=== PATIENT | male | born 1990 | race Caucasian/White ===

== ENCOUNTER 2020-09-23 13:25 | Emergency (ER) | payer OTHER, SELFPAY ==
--- NOTE | 2020-09-23 13:29 | XRR_ITS ---
PROCEDURE INFORMATION: Exam: XR Left Hand Exam date and time: 09/23/2020 1:29 PM Age: 29 years old Clinical indication: Injury or trauma; Other: Sliced with knife; Laceration; Hand; Left; Injury date: 09/23/2020; Injury details: 2nd digit tip of finger, sliced with a knife TECHNIQUE: Imaging protocol: XR Left hand. Views: 3 or more views. COMPARISON: No relevant prior studies available. FINDINGS: Bones/joints: Negative for acute bony abnormality. Soft tissues: There is evidence of a laceration involving the distal aspect of the index finger. Soft tissue effusion is seen in the distal index finger. XR/XR hand LT min 3V* [id number] IMPRESSION: 1. No acute bone abnormality. 2. Soft tissue laceration and edema distal index finger
[2020-09-23 13:39] VITALS: BP 159/92; PULSE 105; RESP 18; TEMP 36.2; O2SAT 97; BMI 35.2
[2020-09-23] MEDS: lidocaine 1% INJ 20 mL INJECTION (14:04)
[2020-09-23 14:48] VITALS: PULSE 92; RESP 18; O2SAT 96
--- NOTE | 2020-09-23 15:18 | ED_ITS ---
HPI - Wound/Laceration General: Chief Complaint: Wound/Laceration Stated Complaint: L FINGER INJURY Time Seen by Provider: 09/23/20 13:34 Source: patient Mode of arrival: ambulatory Limitations: no limitations History of Present Illness: HPI narrative: 29 yo male patient presents to ER with Laceration to left index finger. Pt states he cut while cleaning a deer. Pt states his Tetanus is UTD. pt states he can move and bend his finger without difficulty. Bleeding is controlled. pt denies numbness or tingling Associated symptoms: Denies chills or fever(s) Review of Systems Const: Denies: fever(s) or chills Card: Denies: chest pain Resp: Denies: dyspnea GI: Denies: abdominal pain : Denies: flank pain Musc: Reports: extremity pain; Denies: neck pain or back pain Neuro: Denies: headache(s) or numbness in extremities Psych: Denies: anxiety or homicidal ideation Physical Exam Const: COMMON NORMALS: no acute distress, patient oriented x3 and no limitations Resp: COMMON NORMALS: normal respiratory effort Cardio: COMMON NORMALS: regular rate RATE: regular rate Extremity: COMMON NORMALS: full ROM and capillary refill normal NARRATIVE EXTREMITY EXAM: 2 cm laceration to the distal aspect of left 2nd digit pt is NVI and has full ROM Neuro: COMMON NORMALS: patient oriented x3, CN's II-XII intact bilaterally and moves all extremities Psych: COMMON NORMALS: mental status grossly normal, Normal thought process present, cooperative, denies homicidal ideation and denies suicidal ideation THOUGHT PROCESS: Normal thought process present Procedures Laceration Laceration 1: Site: hand (29 yo male patient presents to ER with Laceration to left index finger. Pt states he cut while cleaning a deer. Pt states his Tetanus is UTD. pt states he can move and bend his finger without difficulty. Bleeding is controlled. pt denies numbness or tingling) Size (cm): 2 Description: linear Depth: simple, single layer Local Anesthetic: lidocaine 1% Amount of anesthesia used (mL): 4 Pre-repair: wound explored and irrigated extensively Skin layer closed with: nylon Size (cm): 5-0 Number of sutures: 8 Course Vital Signs: Vital signs: Vital Signs Temperature 97.2 F L 09/23/20 13:39 Pulse Rate 92 11/14/20 14:48 Respiratory Rate 18 09/23/20 14:48 Blood Pressure 159/92 09/23/20 13:39 Pulse Oximetry 96 09/23/20 14:48 MDM - Wound/Laceration MDM Narrative: Medical decision making narrative: Pt is well appearing non toxic and in no acute distress. Laceration did require repair. Please see procedure note for more details. Pt states his Tetanus is UTD. pt states he can move and bend his finger without difficulty. Bleeding is controlled. pt denies numbness or tingling. Pt is NVI. Tendon appears to be itact. Given patient was ccleaning a deer and had deer meat and blood in his wound I will start on antibiotics. Differential Diagnosis: Wound Differential Diagnosis: Likely laceration, abrasion and avulsion of skin Discharge Plan Discharge Patient Disposition: Home Clinical Impression: Laceration Condition: Stable Prescriptions: New Keflex 500 mg capsule 500 mg PO Q6H 7 Days Qty: 28 RF: 0 Discharge Orders: Discharge Order (Routine); Ordered 09/23/20 Ordered By: Yesenia Hwang Referrals: Tianna Peters, [employer] DEPARTMENT SUPERVISOR-C [Primary Care Provider] - Discharge Diet: Advance as tolerated Discharge Activity: Resume usual activity Activity Restrictions/Additional Instructions: Please follow wound care instructions as discussed Please take antibiotics as prescribed Please return in 8-10 days for suture removal Please return to er with loss of sensation increased pain fever or any other concerning symptoms Coding Level of Care Code ED Lunch Wagon Operator for Ofelia Pierre
== END 2020-09-23 14:38 | disposition home or self-care (01) ==
PROVIDERS: Emergency Provider Registered Nurse; PCP Nurse Practitioner
DX: S61.211A Laceration without foreign body of left index finger without damage to nail, initial encounter (principal); W26.0XXA Contact with knife, initial encounter
CPT/HCPCS: 12001; 12345; 73130; 99281; 99283

== ENCOUNTER 2024-09-16 13:42 | Outpatient (CLI) | payer MEDICAID, SELFPAY | END 2024-09-16 13:43 | disposition home or self-care (01) | PROVIDERS: PCP Nurse Practitioner Family; Visit Provider Nurse Practitioner Family | DX: R76.0 Raised antibody titer (principal) | CPT/HCPCS: 36415; 86038 ==

== ENCOUNTER 2025-03-04 15:10 | Emergency (ER) | payer MEDICAID, SELFPAY ==
--- NOTE | 2025-03-04 15:12 | XRR_ITS ---
PROCEDURE INFORMATION: Exam: XR Right Ankle Exam date and time: 03/04/2025 3:57 PM Age: 34 years old Clinical indication: Ankle; Right; RT foot/pain post twisting injury; Additional info: Injury/pain TECHNIQUE: Imaging protocol: Radiologic exam of the right ankle. Views: 3 or more views. COMPARISON: No relevant prior studies available. FINDINGS: Bones/joints: Negative for acute bony abnormality. Soft tissues: Unremarkable XR/XR ankle RT min 3V* [id number] IMPRESSION: No acute findings.
[2025-03-04 15:19] VITALS: BP 167/111; PULSE 88; RESP 14; TEMP 37.1; O2SAT 98; BMI 28.1
--- NOTE | 2025-03-04 16:02 | ED_ITS ---
HPI - Extremity Injury (Upper) General: Chief Complaint: Extremity Injury, Lower Stated Complaint: rt ankle inj Time Seen by Provider: 03/04/25 15:40 Related Data Home Medications ?Medication ?Instructions ?Recorded ?Confirmed No Known Home Medications 03/04/2502/09 Allergies Allergy/AdvReac Type Severity Reaction Status Date / Time No Known Allergies Allergy Verified 03/04/25 15:21 Course Vital Signs: Vital signs: Vital Signs Temperature 98.7 F 03/04/25 15:19 Pulse Rate 88 03/04/25 15:19 Respiratory Rate 14 03/04/25 15:19 Blood Pressure 167/111 03/04/25 15:19 Pulse Oximetry 98 03/04/25 15:19 Discharge Plan Discharge Patient Disposition: Home Clinical Impression: Strain of right ankle and foot Condition: Stable Prescriptions: No Action No Known Home Medications Discharge Orders: Discharge ED (Routine); Ordered 03/04/25 Ordered By: Silvia Pierre Referrals: Nelda Rossi FNP [Primary Care Provider] - Patient Instructions: Ankle Sprain (DC), Foot Sprain (ED), RICE Therapy Activity Restrictions/Additional Instructions: As we discussed, continue to elevate and ice the extremity to help with swelling. You may use the ROSA bandage or ankle splint to help with stability. You indicated you have crutches at home you may utilize as needed. Please follow-up with primary care in 1 to 2 weeks if symptoms are not improving with conservative therapies. Print Language: Luxembourger Coding Level of Care Code ED Freedom Of Information Officer for Ofelia Pierre
--- NOTE | 2025-03-04 16:02 | XRR_ITS ---
PROCEDURE INFORMATION: Exam: XR Right Foot Exam date and time: 03/04/2025 4:01 PM Age: 34 years old Clinical indication: Right; RT foot/pain post twisting injury TECHNIQUE: Imaging protocol: Radiologic exam of the right foot. Views: 3 or more views. COMPARISON: CR XR ankle RT min 3V* [id number] 03/04/2025 3:57 PM FINDINGS: Bones/joints: Negative for acute bony abnormality Soft tissues: Normal. XR/XR foot RT min 3V* [id number] IMPRESSION: No acute findings.
[2025-03-04 16:43] VITALS: BP 147/93; PULSE 88; RESP 16; O2SAT 98
--- NOTE | 2025-03-04 16:56 | W.ED.LOWEXIN ---
HPI - Extremity Injury (Lower) General: Chief Complaint: Extremity Injury, Lower Stated Complaint: rt ankle inj Time Seen by Provider: 03/04/25 15:40 Source: patient Mode of arrival: ambulatory Limitations: no limitations History of Present Illness: Patient is a 34-year-old male presents to ED today with a complaint of a right foot and ankle injury. Patient states he initially rolled the ankle approximately week ago after stepping in a hole. He states he had been treating conservatively at home and felt like pain was improving. 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 He is complaining of pain to the lateral aspect of the foot and ankle. complaint: ankle injury and foot injury Onset (ago): day(s) Injury: Right: ankle and foot Type of Injury: inversion Place: home Severity: moderate Relieving factors: immobilization Exacerbating factors: weight bearing and movement Context: walking Other symptoms: none Related Data Home Medications ?Medication ?Instructions ?Recorded ?Confirmed No Known Home Medications 03/04/25 03/04/25 Allergies Allergy/AdvReac Type Severity Reaction Status Date / Time No Known Allergies Allergy Verified 03/04/25 15:21 Review of Systems Musc: Reports: extremity pain (R foot), joint pain (R ankle) and joint swelling (R ankle); Denies: joint redness or joint warmth Neuro: Denies: numbness in extremities or sensory changes Physical Exam Const: COMMON NORMALS: no acute distress, average body habitus, no limitations, healthy appearing, alert and well nourished Extremity: COMMON NORMALS: capillary refill normal GENERAL: Yes normal exam except as noted RIGHT LOWER EXTREMITY: Yes foot & digits (TTP/edema lateral malleolus; no bony deformity) Right ankle: Yes neurovascular exam (normal) and Yes foot & digits (TTP lateral R foot) Right foot and digits: Yes inspection (normal gross inspection) and Yes neurovascular exam (normal) Neuro: COMMON NORMALS: moves all extremities, no focal motor deficits and no sensory deficits noted SENSORIUM/ORIENTATION: Yes alert Course Vital Signs: Vital signs: Vital Signs Temperature 98.7 F 03/04/25 15:19 Pulse Rate 88 03/04/25 16:43 Respiratory Rate 16 03/04/25 16:43 Blood Pressure 147/93 03/04/25 16:43 Pulse Oximetry 98 03/04/25 16:43 MDM - Extremity Injury (Lower) Medical Decision Making XRs unremarkable. Will place in a velcro ankle splint. He has crutches at home. RICE therapy discussed. Recommend follow-up with primary care in 1 to 2 weeks if symptoms or not improving. Medical Records I reviewed the patient's medical records. Lab Data I reviewed the patient's lab results. Radiology Impressions Ankle X-Ray 03/04/25 15:12 IMPRESSION: No acute findings. Foot X-Ray 03/04/25 16:02 IMPRESSION: No acute findings. No radiology studies performed this visit Discharge Plan Discharge Patient Disposition: Home Clinical Impression: Strain of right ankle and foot Qualifiers: Encounter type: initial encounter Qualified Code(s): S96.911A - Strain of unspecified muscle and tendon at ankle and foot level, right foot, initial encounter Condition: Stable Prescriptions: No Action No Known Home Medications Discharge Orders: Discharge ED (Routine); Ordered 03/04/25 Ordered By: Silvia Pierre Referrals: Nelda Rossi FNP [Primary Care Provider] - Patient Instructions: Ankle Sprain (DC), Foot Sprain (ED), RICE Therapy Activity Restrictions/Additional Instructions: As we discussed, continue to elevate and ice the extremity to help with swelling. You may use the ROSA bandage or ankle splint to help with stability. You indicated you have crutches at home you may utilize as needed. Please follow-up with primary care in 1 to 2 weeks if symptoms are not improving with conservative therapies. Print Language: Bulgarian Coding Level of Care Code ED Driver Merchandiser for Ofelia Pierre
== END 2025-03-04 16:37 | disposition home or self-care (01) ==
PROVIDERS: Emergency Provider Physician Assistant; PCP Nurse Practitioner Family
DX: S96.911A Strain of unspecified muscle and tendon at ankle and foot level, right foot, initial encounter (principal); X58.XXXA Exposure to other specified factors, initial encounter
CPT/HCPCS: 73610; 73630; 99283

== ENCOUNTER 2025-09-23 14:29 | Emergency (ER) | payer OTHER, SELFPAY ==
[2025-09-23 14:31] VITALS: BP 177/103; PULSE 74; RESP 16; TEMP 36.7; O2SAT 100; BMI 26.3
--- NOTE | 2025-09-23 14:31 | XR_ITS ---
WS: [id number] Exam: XR knee LT 3V* [id number] Date/Time of Exam: 09/23/2025 2:44 PM Reason For Exam: pain There is lateral dislocation of the patella. No obvious fracture. The remaining joint compartments of the knee are well-maintained. XR/XR knee LT 3V* [id number] IMPRESSION: 1. Lateral dislocation of the patella.
--- NOTE | 2025-09-23 14:45 | ED_ITS ---
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 He was given pain meds and route denies any other injury. No previous injury to that knee did previously have dislocations of the right knee resulting in surgical correction. They had very difficult time with reduction with the right patella. Associated symptoms: Deny chest pain, fever(s) or rash Related Data Previous Rx's ?Medication ?Instructions ?Recorded hydrocodone 5 mg-acetaminophen 325 1 tab PO Q6H PRN pa in #7 tabs 09/23/25 mg tablet Allergies Allergy/AdvReac Type Severity Reaction Status Date / Time No Known Allergies Allergy Verified 03/04/25 15:21 Review of Systems Const: Denies: fever(s) or chills Card: Denies: chest pain Resp: Denies: dyspnea GI: Denies: abdominal pain : Denies: dysuria, urinary frequency or urinary urgency Musc: Reports: joint pain and joint swelling; Denies: neck pain or back pain Skin/Breast: Denies: rash Physical Exam Const: GENERAL APPEARANCE: cooperative ORIENTATION/CONSCIOUSNESS: Yes awake, Yes oriented to person, Yes oriented to place and Yes oriented to time HENMT: COMMON NORMALS: normocephalic, atraumatic and hearing grossly normal bilaterally HEAD & SCALP: normocephalic and atraumatic Resp: COMMON NORMALS: normal respiratory effort, No retractions, No use of accessory muscles and clear to auscultation bilaterally AUSCULTATION: clear to auscultation bilaterally Cardio: COMMON NORMALS: regular rate, regular rhythm and No murmurs present (Cardio) RATE: regular rate RHYTHM: regular rhythm GI: COMMON NORMALS: Soft to palpation and No hepatosplenomegaly present AUSCULTATION: Yes normoactive bowel sounds PALPATION: Yes Soft to palpation, No Tenderness to palpation present (GI), No Guarding due to palpation present (GI) and Yes No hepatosplenomegaly present Extremity: OTHER: Obvious lateral defect patellar dislocation of the left knee. Moderate effusion present Neuro: SENSORIUM/ORIENTATION: Yes oriented to person, Yes oriented to place and Yes oriented to time Skin: COMMON NORMALS: no rashes or lesions noted GENERAL SKIN EXAM: no rashes or lesions noted Procedures Orthopedic Joint Reduction Joint #1: Time Out Performed: Yes Side: left Joint Reduction Location: knee/patella Analgesia: procedural sedation Technique used: direct manipulation Post-reduction neuro exam: intact Post-reduction vascular: intact Post Reduction X-Ray Obtained: Yes Post Reduction X-Ray Results: reduced Splint Applied: Yes Patient Tolerated Procedure: well Procedural Sedation Indication: fracture/dislocation reduction ASA Class: I Preparation: quality assurance monitor final applied, pulse oximeter, supplemental O2 applied, suction/airway equipment at bedside and IV secured IV Etomidate dose (mg): 15 (Titrated in 5 mg increments.) Additional Comments: Procedure start time 1510, stop time 1622 Course Vital Signs: Vital signs: Vital Signs Temperature 97.9 F 09/23/25 15:05 Pulse Rate 69 09/23/25 17:19 Respiratory Rate 16 09/23/25 16:24 Blood Pressure 143/80 09/23/25 17:19 Pulse Oximetry 100 09/23/25 17:19 Oxygen Delivery Me thod Room Air 09/23/25 16:24 MDM - Extremity (Nontraumatic) Medical Decision Making Attempted reduction at the bedside patient could not tolerate. We did not did sedation titrated etomidate and 5 mg increments at 15 mg patient was completely sedate but was unable to reduce there is still too much muscle tension. Patient was given 50 mg of IV push propofol was then able to reduce. He was given additional pain medication Dilaudid immediately after the reduction and then once again prior to discharge. He is placed in a splint and will refer him to orthopedics. Pain medications given advised nonweightbearing till cleared by Ortho. Medical Records I reviewed the patient's medical records. Lab Data I reviewed the patient's lab results. Radiology Impressions Knee X-Ray 09/23/25 16:14 IMPRESSION: Status post reduction of the dislocated patella All radiology interpretation(s) finalized by discharge Discharge Plan Discharge Patient Disposition: Home Clinical Impression: Closed dislocation of left patella Condition: Stable Prescriptions: New hydrocodone-acetaminophen 5-325 mg tablet 1 tab PO Q6H PRN (Reason: pain) Qty: 7 0RF Discharge Orders: Discharge ED (Routine); Ordered 09/23/25 Ordered By: Waylon Cortes Referrals: Nelda Rossi FNP [Primary Care Provider, [facility]] Discharge Diet: Usual diet Discharge Activity: Limit activity as instructed Patient Instructions: Opioid Safety, Pain Management, Patient Portal & Brea Instructions Activity Restrictions/Additional Instructions: [facility] you [facility] needs today. It is very important that you follow up as instructed or that you return to the Em ergency Department should you have concerns or if your condition changes or worsens in any way. Emergency department visits are focused on emergent conditions, in some cases you may require further evaluation on an outpatient basis. You are seen emergency room after dislocation of her left patella this was reduced under conscious sedation. Recommend wearing a knee brace for the next several days also give you crutches nonweightbearing on the affected limb you are given prescription for pain medications case management make arrangements for you to follow-up with orthopedics. (Please note that included in your discharge packet is information concerning opioid safety and pain management. This information is given to all patients were discharged from the ER regardless of their discharge diagnosis or the medicines they usually take or are prescribed.) Print Language: Japanese Coding Level of Care Code ED Teacher Adult Education for Ofelia Pierre
[2025-09-23] MEDS: HYDROmorphone 0.5 MG/0.5 ML INJ 1 MG IVP ×2 (15:01→16:19)
[2025-09-23 15:05] VITALS: BP 177/89; PULSE 83; RESP 16; TEMP 36.6; O2SAT 99
[2025-09-23] MEDS: propofol 10 mg/mL SDV 20 mL 50 MG IVP (15:15)
[2025-09-23] MEDS: etomidate 2 mg/mL INJ SDV 10 mL 15 MG IVP (16:05)
--- NOTE | 2025-09-23 16:14 | XRR_ITS ---
PROCEDURE INFORMATION: Exam: XR Left Knee Exam date and time: 09/23/2025 5:16 PM Age: 34 years old Clinical indication: Screening exam; Post reduction TECHNIQUE: Imaging protocol: Radiologic exam of the left knee. Views: 1 or 2 views. COMPARISON: CR XR knee LT 3V* [id number] 09/23/2025 2:58 PM FINDINGS: Bones/joints: The patella has been reduced and is in normal position. No fractures are identified. Suprapatellar effusion is noted. Soft tissues: Normal. XR/XR knee LT 1-2V [id number] IMPRESSION: Status post reduction of the dislocated patella
[2025-09-23 16:24] VITALS: BP 133/60; PULSE 86; RESP 16; O2SAT 99
[2025-09-23 17:19] VITALS: BP 143/80; PULSE 69; O2SAT 100
--- NOTE | 2025-09-26 09:33 | DCPLANNER ---
messaged ortho for er f/u
== END 2025-09-23 17:22 | disposition home or self-care (01) ==
PROVIDERS: Emergency Provider Family Medicine; PCP Nurse Practitioner Family
DX: S83.015A Lateral dislocation of left patella, initial encounter (principal); W55.32XA Struck by other hoof stock, initial encounter
CPT/HCPCS: 27560; 73560; 73562; 94799; 96374; 96376; 99152; 99285; 99291; J1171; J2704; J3490

== ENCOUNTER → 2025-10-03 08:52 | Outpatient (BNVA) | payer OTHER, SELFPAY | PROVIDERS: PCP Nurse Practitioner Family; Visit Provider Nurse Practitioner | DX: M25.562 Pain in left knee (principal) | CPT/HCPCS: 73562 ==

== ENCOUNTER 2025-10-03 10:31 | Outpatient (CLI) | payer OTHER, SELFPAY | END 2025-10-03 10:32 | disposition home or self-care (01) | LOC: SPT 10:32 | PROVIDERS: PCP Nurse Practitioner Family; Visit Provider Nurse Practitioner | DX: Z46.89 Encounter for fitting and adjustment of other specified devices (principal); S83.015D Lateral dislocation of left patella, subsequent encounter; X58.XXXD Exposure to other specified factors, subsequent encounter | CPT/HCPCS: 97760; L1832 ==

== ENCOUNTER → 2025-10-11 15:14 | Outpatient (BNVA) | payer OTHER, SELFPAY | PROVIDERS: PCP Nurse Practitioner Family; Visit Provider Nurse Practitioner | DX: S83.005A Unspecified dislocation of left patella, initial encounter (principal); X58.XXXA Exposure to other specified factors, initial encounter | CPT/HCPCS: 73562 ==

== ENCOUNTER 2025-10-28 15:13 | Outpatient (CLI) | payer OTHER, SELFPAY ==
--- NOTE | 2025-10-28 15:15 | MR_ITS ---
WS: [id number] MRI LEFT KNEE NONCONTRAST TECHNIQUE: Axial PD, coronal PD fat sat, coronal PD, sagittal PD, and sagittal PD fat-sat images obtained. CLINICAL INFORMATION: dislocation of left patella FINDINGS: Distal quadriceps and patellar tendons are intact. ACL and PCL appear intact. Evidence of prior lateral patellar dislocation with contusion involving the patella and lateral femoral condyle. Persistent associated edema in these locations. No visualized avulsion fractures or intra-articular fragments. Shallow trochlear groove. Tear of the medial patellofemoral ligament (MPFL) pos teriorly near the junction with the MCL. Medial and lateral meniscus appear intact. No acute appearing meniscal tears. Fibular head appears normal. Normal popliteal fossa. Medial and lateral collateral ligaments appear intact. MR/MR knee LT wo con* [id number] IMPRESSION: 1. Evidence of recent lateral patella dislocation with contusions involving th e patella and lateral femoral condyle. 2. Shallow trochlear groove. Grade II chondromalacia patella. 3. No visualized intra-articular avulsed fragments. 4. Tear of the medial patellofemoral ligament posteriorly near the junction of the MCL. 5. Medial and lateral collateral ligaments appear intact. 6. ACL and PCL appear intact. 7. No other acute findings. Outbridge grading: grade II: blister-like swelling/fraying of articular cartila ge extending to surface
== END 2025-10-28 15:14 | disposition home or self-care (01) ==
LOC: RAD 15:14
PROVIDERS: PCP Nurse Practitioner Family; Visit Provider Nurse Practitioner
DX: S83.015A Lateral dislocation of left patella, initial encounter (principal); X58.XXXA Exposure to other specified factors, initial encounter; S76.112A Strain of left quadriceps muscle, fascia and tendon, initial encounter
CPT/HCPCS: 73721